=== PATIENT | female | born 1990 | race African-American/Black ===

== ENCOUNTER 2021-03-19 15:29 | Emergency (ER) | payer SELFPAY ==
[~2021-03-19] VITALS: Ht 149.9 cm; Wt 54.5 kg
[2021-03-19 15:33] VITALS: BP 115/69
== END 2021-03-19 15:40 | disposition left against medical advice (07) ==
LOC: ER 15:29
DX: R06.02 Shortness of breath (principal); Z53.21 Procedure and treatment not carried out due to patient leaving prior to being seen by health care provider